=== PATIENT | female | born 1955 | race Caucasian/White ===

== ENCOUNTER 2023-11-29 15:38 | Observation (INO) | payer MEDICARE ==
[2023-11-29 16:21] VITALS: RESP 16
--- NOTE | 2023-11-29 16:25 | ED ---
General Adult HPI - General Chief complaint: Arrhythmia/Palpitations Stated complaint: Defibulator Time Seen by Provider: 11/29/23 15:45 Source: patient, EMS, RN notes reviewed Mode of arrival: EMS Limitations: no limitations - History of Present Illness Initial comments: Patient is a 68-year-old female presenting to the emergency department with concern for defibrillator firing. Patient was exercising for approximately 45 minutes to an hour, somewhat heavy exertion. Patient suddenly felt her defibrillator fire 1 time. Patient felt fine prior to this and has felt fine since this. No episode of this previously although defibrillator has been p resent for 20 years. Patient does have history of metastatic breast cancer and is on chemotherapy. - Related Data Home Medications Medication Instructions Recorded Confirmed Atorvastatin [Lipitor] 20 mg PO HS 11/29/23 11/29/23 Doxycycline [Vibramycin] 100 mg PO DAILY 11/29/23 11/29/23 Ondansetron Odt [Zofran Odt] 8 mg PO Q8HR PRN 11/29/23 11/29/23 dexAMETHasone [Decadron] 4 mg PO DIRECTED 11/29/23 11/29/23 metFORMIN HCL 500 mg PO BID 11/29/23 11/29/23 oxyCODONE HCL [OxyCONTIN] 30 mg PO Q8H 11/29/23 11/29/23 oxyCODONE HCL [oxyCODONE HCL (IR)] 20 mg PO Q4HR PRN 11/29/23 11/29/23 Allergies Allergy/AdvReac Type Severity Reaction Status Date / Time No Known Allergies Allergy Verified 11/29/23 17:06 Review of Systems ROS Statement: Those systems with pertinent positive or pertinent negative responses have been documented in the HPI. ROS Other: All systems not noted in ROS Statement are negative. Constitutional: Denies: fever Eyes: Denies: eye pain ENT: Denies: ear pain Respiratory: Denies: cough, dyspnea Cardiovascular: Reports: as per HPI Endocrine: Denies: fatigue Gastrointestinal: Denies: abdominal pain Past Medical History Past Medical History: Cancer, Hyperlipidemia Additional Past Medical History / Comment(s): Breast CA, Metatastic breast CA, borderline diabetic History of Any Multi-Drug Resistant Organisms: None Reported Past Surgical History: AICD, Breast Surgery Past Psychological History: No Psychological Hx Reported Smoking Status: Never smoker Past Alcohol Use History: None Reported Past Drug Use History: None Reported General Exam Limitations: no limitations General appearance: alert, in no apparent distress Head exam: Present: normocephalic Eye exam: Present: normal appearance Neck exam: Present: normal inspection Respiratory exam: Present: normal lung sounds bilaterally Cardiovascular Exam: Present: regular rate, normal rhythm, normal heart sounds Expanded Peripheral pulses: 2+: Radial (R), Radial (L), Dorsalis Pedis (R), Dorsalis Pedis (L) GI/Abdominal exam: Present: soft. Absent: tenderness Extremities exam: Present: normal inspection. Absent: pedal edema, calf tenderness Neurological exam: Present: alert Psychiatric exam: Present: normal affect, normal mood Skin exam: Present: normal color Course Vital Signs 11/29/23 11/29/23 11/29/23 16:03 16:10 17:10 Temperature 98.4 F Pulse Rate 88 87 76 Respiratory 16 16 16 Rate Blood Pressure 137/88 137/88 O2 Sat by Pulse 98 98 98 Oximetry 11/29/23 11/29/23 18:10 19:00 Temperature Pulse Rate 82 81 Respiratory 16 16 Rate Blood Pressure 136/78 O2 Sat by Pulse 98 96 Oximetry EKG Findings - EKG Results: EKG: interpreted by ERMD, sinus rhythm, normal axis, normal QRS, normal ST/T Medical Decision Making - Medical Decision Making Was pt. sent in by a medical professional or institution (ARMANDO Taylor, COMPUTER SPECIALIST, urgent care, hospital, or correction...) When possible be specific @ -No Did you speak to anyone other than the patient for history (EMS, parent, family, police, friend...)? What history was obtained from this source @ -No Did you review nursing and triage notes (agree or disagree)? Why? @ -I reviewed and agree with nursing and triage notes Were old charts reviewed (outside hosp., previous admission, EMS record, old EKG, old radiological studies, urgent care reports/EKG's, correction records)? Report findings @ -No old charts were reviewed Differential Diagnosis (chest pain, altered mental status, abdominal pain women, abdominal pain men, vaginal bleeding, weakness, fever, dyspnea, syncope, headache, dizziness, GI bleed, back pain, seizure, CVA, palpatations, mental h ealth, musculoskeletal)? @ -MDM differential palpitation EKG interpreted by me (3pts min.). @ -As above X-rays interpreted by me (1pt min.). @ -Chest x-ray shows possible minimal effusions. Defibrillator. Port CT interpreted by me (1pt min.). @ -None done U/S interpreted by me (1pt. min.). @ -None done What testing was considered but not performed or refused? (CT, X-rays, U/S, labs)? Why? @ -Still pending interrogation of defibrillator What meds were considered but not given or refused? Why? @ -None Did you discuss the management of the patient with other professionals (professionals i.e. Dr., PA, COMPUTER SPECIALIST, lab, RT, psych nurse, social work nurse, freight broker, teacher, assistant chief nursing officer, case briefer)? Give summary @ -Case was discussed with Dr. Obando who will admit covering hospital call Was smoking cessation discussed for >3mins.? @ -No Was critical care preformed (if so, how long)? @ -No Were there social determinants of health that impacted care today? How? (Homelessness, low income, unemployed, alcoholism, drug addiction, transportation, low edu. Level, literacy, decrease access to med. care, correction, rehab)? @ -No Was there de-escalation of care discussed even if they declined (Discuss DNR or withdrawal of care, Hospice)? DNR status @ -No What co-morbidities impacted this encounter? (DM, HTN, Smoking, COPD, CAD, Cancer, CVA, ARF, Chemo, Hep., AIDS, mental health diagnosis, sleep apnea, morbid obesity)? @ -History of metastatic breast cancer. History of defibrillator Was patient admitted / discharged? Hospital course, mention meds given and route, prescriptions, significant lab abnormalities, going to OR and other pertinent info. @ -Patient presents with defibrillator shock. Troponin level is somewhat elevated, likely from shock. Patient will be admitted with cardiac consult and repeat troponin testing. Admission orders written. Consult placed. No heparin at this time secondary to thoughts that troponin is likely related to the shock. Undiagnosed new problem with uncertain prognosis? @ -No Drug Therapy requiring intensive monitoring for toxicity (Heparin, Nitro, Insulin, Cardizem)? @ -No Were any procedures done? @ -No Diagnosis/symptom? @ -Defibrillator firing Acute, or Chronic, or Acute on Chronic? @ -Acute Uncomplicated (without systemic symptoms) or Complicated (systemic symptoms)? @ -Default Side effects of treatment? @ -No Exacerbation, Progression, or Severe Exacerbation? @ -No Poses a threat to life or bodily function? How? (Chest pain, USA, AR, pneumonia, PE, COPD, DKA, ARF, appy, cholecystitis, CVA, Diverticulitis, Homicidal, Emily cidal, threat to staff... and all critical care pts) @ -Threat to cardiac function - Lab Data Result diagrams: 11/29/23 17:00 11/29/23 18:50 Lab Results 11/29/23 11/29/23 11/29/23 Range/Units 17:00 17:00 18:50 WBC 3.6 L (3.8-10.6) k/uL RBC 4.30 (3.80-5.40) m/uL Hgb 11.2 L (11.4-16.0) gm/dL Hct 35.6 (34.0-46.0) % MCV 82.7 (80.0-100.0) fL MCH 26.0 (25.0-35.0) pg MCHC 31.5 (31.0-37.0) g/dL RDW 15.6 H (11.5-15.5) % Plt Count 194 (150-450) k/uL MPV 8.6 Neutrophils % 76 % Lymphocytes % 17 % Monocytes % 3 % Eosinophils % 3 % Basophils % 0 % Neutrophils # 2.8 (1.3-7.7) k/uL Lymphocytes # 0.6 L (1.0-4.8) k/uL Monocytes # 0.1 (0-1.0) k/uL Eosinophils # 0.1 (0-0.7) k/uL Basophils # 0.0 (0-0.2) k/uL Hypochromasia Slight PT 10.8 (10.0-12.5) sec INR 1.0 (<1.2) APTT 22.5 (22.0-30.0) sec Sodium (137-145) mmol/L Potassium (3.5-5.1) mmol/L Chloride (98-107) mmol/L Carbon Dioxide (22-30) mmol/L Anion Gap mmol/L BUN (7-17) mg/dL Creatinine (0.52-1.04) mg/dL Est GFR (CKD-EPI)AfAm (>60 ml/min/1.73 sqM) Est GFR (CKD-EPI)NonAf (>60 ml/min/1.73 sqM) Glucose (74-99) mg/dL Calcium (8.4-10.2) mg/dL Magnesium (1.6-2.3) mg/dL Total Bilirubin (0.2-1.3) mg/dL AST (14-36) U/L ALT (4-34) U/L Alkaline Phosphatase (38-126) U/L Troponin I 0.102 H* (0.000-0.034) ng/mL Total Protein (6.3-8.2) g/dL Albumin (3.5-5.0) g/dL TSH (0.465-4.680) mIU/L Free T4 (0.78-2.19) ng/dL 11/29/23 Range/Units 18:50 WBC (3.8-10.6) k/uL RBC (3.80-5.40) m/uL Hgb (11.4-16.0) gm/dL Hct (34.0-46.0) % MCV (80.0-100.0) fL MCH (25.0-35.0) pg MCHC (31.0-37.0) g/dL RDW (11.5-15.5) % Plt Count (150-450) k/uL MPV Neutrophils % % Lymphocytes % % Monocytes % % Eosinophils % % Basophils % % Neutrophils # (1.3-7.7) k/uL Lymphocytes # (1.0-4.8) k/uL Monocytes # (0-1.0) k/uL Eosinophils # (0-0.7) k/uL Basophils # (0-0.2) k/uL Hypochromasia PT (10.0-12.5) sec INR (<1.2) APTT (22.0-30.0) sec Sodium 133 L (137-145) mmol/L Potassium 4.5 (3.5-5.1) mmol/L Chloride 106 (98-107) mmol/L Carbon Dioxide 25 (22-30) mmol/L Anion Gap 2 mmol/L BUN 16 (7-17) mg/dL Creatinine 0.69 (0.52-1.04) mg/dL Est GFR (CKD-EPI)AfAm >90 (>60 ml/min/1.73 sqM) Est GFR (CKD-EPI)NonAf 90 (>60 ml/min/1.73 sqM) Glucose 89 (74-99) mg/dL Calcium 9.0 (8.4-10.2) mg/dL Magnesium 1.9 (1.6-2.3) mg/dL Total Bilirubin 0.3 (0.2-1.3) mg/dL AST 57 H (14-36) U/L ALT 24 (4-34) U/L Alkaline Phosphatase 59 (38-126) U/L Troponin I (0.000-0.034) ng/mL Total Protein 6.3 (6.3-8.2) g/dL Albumin 3.9 (3.5-5.0) g/dL TSH 0.934 (0.465-4.680) mIU/L Free T4 1.45 (0.78-2.19) ng/dL Disposition Clinical Impression: Defibrillator discharge Disposition: ADMITTED IP TO THIS HOSP Is patient prescribed a controlled substance at d/c from ED?: No Referrals: Rocael Mcqueen MD [Primary Care Provider] - 1-2 days Time of Disposition: 20:20
--- NOTE | 2023-11-29 17:33 | XR ---
EXAMINATION TYPE: XR chest 2V DATE OF EXAM: 11/29/2023 COMPARISON: None INDICATION: Dysrhythmia TECHNIQUE: Frontal and lateral views of the chest are obtained. FINDINGS: The heart size is normal. The pulmonary vasculature is normal. Small bilateral pleural effusions are present. Port is present on the left with tip in the superior v kayy cava region. Electronic device overlies the right chest IMPRESSION: 1. Small bilateral pleural effusions [facility], Workstation: [facility], 11/29/2023 5:31 PM
[2023-11-29 17:41] LABS: Basophils % (A) 0 %; Eosinophils # (A) 0.1 k/uL (0-0.7); Eosinophils % (A) 3 %; HCT 35.6 % (34.0-46.0); HGB 11.2 gm/dL (11.4-16.0); Hypochromasia Slight; Lymphocytes # (A) 0.6 k/uL (1.0-4.8); Lymphocytes % (A) 17 %; MCHC 31.5 g/dL (31.0-37.0); MCV 82.7 fL (80.0-100.0); Mean Platelet Volume 8.6; Monocytes # (A) 0.1 k/uL (0-1.0); Monocytes % (A) 3 %; Neutrophils # (A) 2.8 k/uL (1.3-7.7); Neutrophils % (A) 76 %; Platelet Count 194 k/uL (150-450); RDW 15.6 % (11.5-15.5); WBC 3.6 k/uL (3.8-10.6)
[2023-11-29 18:05] LABS: Partial Thromboplastin Time 22.5 sec (22.0-30.0); Prothrombin Time 10.8 sec (10.0-12.5)
[2023-11-29 19:10] LABS: ALT 24 U/L (4-34); AST 57 U/L (14-36); African American GFR (CKD) >90 (>60 ml/min/1.73 sqM); Albumin 3.9 g/dL (3.5-5.0); Alkaline Phosphatase 59 U/L (38-126); Anion Gap 2 mmol/L; Blood Urea Nitrogen 16 mg/dL (7-17); Carbon Dioxide 25 mmol/L (22-30); Chloride 106 mmol/L (98-107); Glucose 89 mg/dL (74-99); Magnesium 1.9 mg/dL (1.6-2.3); Non-African American GFR(CKD) 90 (>60 ml/min/1.73 sqM); Potassium 4.5 mmol/L (3.5-5.1); Sodium 133 mmol/L (137-145); Total Bilirubin 0.3 mg/dL (0.2-1.3); Total Protein 6.3 g/dL (6.3-8.2)
[2023-11-29 19:27] LABS: T4, Free (Free Thyroxine) 1.45 ng/dL (0.78-2.19)
[2023-11-29] MEDS ORDERED: ONDANSETRON ODT 8 MG TAB.RAPDIS PO PRN (20:15)
[2023-11-29] MEDS ORDERED: NALOXONE 0.4 MG/ML 1 ML VIAL IV PRN (20:21)
[2023-11-29] MEDS: metFORMIN 500 MG TAB PO SCH (20:48)
[2023-11-29] MEDS: dexAMETHasone 4 MG TAB PO SCH (20:51)
[2023-11-29] MEDS: oxyCODONE ER 15 MG TAB.ER.12H PO SCH (20:52)
[2023-11-29] MEDS: ATORVASTATIN 20 MG TAB PO SCH (21:03)
[2023-11-29] MEDS: ASPIRIN 325 MG TAB PO SCH (21:03)
[2023-11-30 12:22] VITALS: BP 149/77; PULSE 73; TEMP 97.9
--- NOTE | 2023-11-30 12:47 | P.HPIM ---
History of Present Illness H&P Date: 11/30/23 History of present illness; patient 68-year-old lady with past medical history significant for breast cancer, ACDF in the ER because of AICD firing. 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 Patient stated that she moved to [place] few years ago but kept her previous doctors. Patient states that she was exercising yesterday at home and suddenly she felt her AICD firing. AICD fired 1 time. Patient felt normal afterwards. There was no complaint of any chest pain or shortness of breath. There was no nausea, no complaint of vomiting abdominal pain. Patient denies any passing out. There was no complaint of lethargy or weakness. There was no complaint of l ightheadedness dizziness. Because of AICD firing, patient presented to the ER Initial lab work done in the ER showed WBC 3.6, hemoglobin 9.2, platelet count 194, sodium 123, potassium 4.5, BUN 16, creatinine 0.69, glucose 89, magnesium 1.9, AST 57, troponin 0.102 EKG done in the ER showed heart rate of 79, no ST segment elevation or depression seen, no T-wave inversions seen. Chest x-ray done in the ER showed small bilateral pleural effusion Patient admitted to internal medicine service REVIEW OF SYSTEMS: CONSTITUTIONAL: No fever, no malaise, no fatigue. HEENT: No recent visual problems or hearing problems. Denied any sore throat. CARDIOVASCULAR: As mentioned above PULMONARY: As mentioned above GASTROINTESTINAL: No diarrhea, no nausea, no vomiting, no abdominal pain. NEUROLOGICAL: No headaches, no weakness, no numbness. HEMATOLOGICAL: Denies any bleeding or petechiae. GENITOURINARY: Denies any burning micturition, frequency, or urgency. MUSCULOSKELETAL/RHEUMATOLOGICAL: Denies any joint pain, swelling, or any muscle pain. ENDOCRINE: Denies any polyuria or polydipsia. The rest of the 14-point review of systems is negative. PHYSICAL EXAMINATION: GENERAL: The patient is alert and oriented x3, not in any acute distress. Well developed, well nourished. HEENT: Pupils are round and equally reacting to light. EOMI. No scleral icterus. No conjunctival pallor. Normocephalic, atraumatic. No pharyngeal erythema. No thyromegaly. CARDIOVASCULAR: S1 and S2 present. No murmurs, rubs, or gallops. PULMONARY: Chest is clear to auscultation, no wheezing or crackles. ABDOMEN: Soft, nontender, nondistended, normoactive bowel sounds. No palpable organomegaly. MUSCULOSKELETAL: No joint swelling or deformity. EXTREMITIES: No cyanosis, clubbing, or pedal edema. NEUROLOGICAL: Gross neurological examination did not reveal any focal deficits. SKIN: No rashes. Assessment and plan AICD firing Elevated troponin secondary to AICD firing History of metastatic breast cancer Hyperlipidemia Diabetes mellitus Monitor vital signs Monitor CBC Monitor CMP Continue telemetry monitoring Trend troponin Check electrolytes Resume home med Consult cardiology Labs and medication were reviewed.. Continue same treatment. Continue with symptomatic treatment. Resume home medication. Monitor labs and vitals. DVT and GI prophylaxis. Further recommendations as per clinical course of the patient Dictation was produced using [employer] dictation software. please excuse any grammatical, word or spelling errors. Past Medical History Past Medical History: Cancer, Hyperlipidemia Additional Past Medical History / Comment(s): metatastic breast CA History of Any Multi-Drug Resistant Organisms: None Reported Past Surgical History: AICD, Breast Surgery Past Anesthesia/Blood Transfusion Reactions: No Reported Reaction Type of Cardiac Device: AICD Device Placement Date:: UNKNOWN Past Psychological History: No Psychological Hx Reported Smoking Status: Never smoker Past Alcohol Use History: None Reported Past Drug Use History: None Reported Medications and Allergies Home Medications Medication Instructions Recorded Confirmed Type Atorvastatin [Lipitor] 20 mg PO HS 11/29/23 11/29/23 History Doxycycline [Vibramycin] 100 mg PO DAILY 11/29/23 11/29/23 History Ondansetron Odt [Zofran Odt] 8 mg PO Q8HR PRN 11/29/23 11/29/23 History dexAMETHasone [Decadron] 4 mg PO DIRECTED 11/29/23 11/29/23 History metFORMIN HCL 500 mg PO BID 11/29/23 11/29/23 History oxyCODONE HCL [OxyCONTIN] 30 mg PO Q8H 11/29/23 11/29/23 History oxyCODONE HCL [oxyCODONE HCL (IR)] 20 mg PO Q4HR PRN 11/29/23 11/29/23 History Allergies Allergy/AdvReac Type Severity Reaction Status Date / Time No Known Allergies Allergy Verified 11/29/23 17:06 Physical Exam Vitals: Vital Signs Temp Pulse Pulse Resp BP BP Pulse Ox 11/30/23 12:16 97.9 F 73 16 149/77 98 11/30/23 08:55 98.1 F 68 16 124/76 99 11/30/23 07:45 96 11/30/23 04:00 97.6 F 72 16 103/66 97 11/30/23 00:00 72 16 118/73 98 11/29/23 21:45 98.8 F 94 16 137/74 100 11/29/23 21:10 81 16 98 11/29/23 21:00 77 16 107/74 98 11/29/23 19:00 81 16 136/78 96 11/29/23 18:10 82 16 98 11/29/23 17:10 76 16 137/88 98 11/29/23 16:10 87 16 98 11/29/23 16:03 98.4 F 88 16 137/88 98 Intake and Output 11/29/23 11/30/23 11/30/23 22:59 06:59 14:59 Intake Total 10 Balance 10 Intake: IV 10 Invasive Line 1 10 Other: Voiding Method Toilet # Voids 1 1 Weight 51.71 kg 52.2 kg Results CBC & Chem 7: 11/29/23 17:00 11/29/23 18:50 Labs: Abnormal Lab Results - Last 24 Hours (Table) 11/29/23 11/29/23 11/29/23 Range/Units 17:00 18:50 18:50 WBC 3.6 L (3.8-10.6) k/uL Hgb 11.2 L (11.4-16.0) gm/dL RDW 15.6 H (11.5-15.5) % Lymphocytes # 0.6 L (1.0-4.8) k/uL Sodium 133 L (137-145) mmol/L AST 57 H (14-36) U/L Troponin I 0.102 H* (0.000-0.034) ng/mL 11/29/23 11/30/23 Range/Units 21:30 00:45 WBC (3.8-10.6) k/uL Hgb (11.4-16.0) gm/dL RDW (11.5-15.5) % Lymphocytes # (1.0-4.8) k/uL Sodium (137-145) mmol/L AST (14-36) U/L Troponin I 0.148 H* 0.134 H* (0.000-0.034) ng/mL Thrombosis Risk Factor Assmnt - Choose All That Apply Any of the Below Risk Factors Present?: No Other Risk Factors: Yes Each Risk Factor Represents 2 Points: Age 61-74 years Other congenital or acquired thrombophilia - If yes, enter type in comment: No Thrombosis Risk Factor Assessment Total Risk Factor Score: 2 Thrombosis Risk Factor Assessment Level: Low Risk
--- NOTE | 2023-11-30 12:49 | P.DS ---
Providers Date of admission: 11/29/23 20:21 Expected date of discharge: 11/30/23 Attending physician: Barry Myers MD Consults: 11/29/23 20:21 Consult Physician Urgent Consulting Provider: Audie Nazario Consult Reason/Comments: Defibrillator firing, troponin 0.1 Do you want consulting provider notified?: Yes Primary care physician: [facility] Course: Discharge diagnoses; AICD firing Elevated troponin secondary to AICD firing History of metastatic breast cancer Hyperlipidemia Diabetes mellitus Hospital course; patient 68-year-old lady with past medical history significant for breast cancer, ACDF in the ER because of AICD firing. 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 Patient stated that she moved to [place] few years ago but kept her previous doctors. Patient states that she was exercising yesterday at home and suddenly she felt her AICD firing. AICD fired 1 time. Patient felt normal afterwards. There was no complaint of any chest pain or shortness of breath. There was no nausea, no complaint of vomiting abdominal pain. Patient denies any passing out. There was no complaint of lethargy or weakness. There was no complaint of lightheadedness dizziness. Because of AICD firing, patient presented to the ER Initial lab work done in the ER showed WBC 3.6, hemoglobin 9.2, platelet count 194, sodium 123, potassium 4.5, BUN 16, creatinine 0.69, glucose 89, magnesium 1.9, AST 57, troponin 0.102 EKG done in the ER showed heart rate of 79, no ST segment elevation or depression seen, no T-wave inversions seen. Chest x-ray done in the ER showed small bilateral pleural effusion Patient admitted to internal medicine service Patient was seen by cardiology, AICD was interrogated, cardiology thinks that AICD was inappropriately fired. Cardiology do not recommend any further ischemic workup. Recommend follow-up outpatient with patient's own automobile inspector. Being discharged in stable condition PHYSICAL EXAMINATION: GENERAL: The patient is alert and oriented x3, not in any acute distress. Well developed, well nourished. HEENT: Pupils are round and equally reacting to light. EOMI. No scleral icterus. No conjunctival pallor. Normocephalic, atraumatic. No pharyngeal erythema. No thyromegaly. CARDIOVASCULAR: S1 and S2 present. No murmurs, rubs, or gallops. PULMONARY: Chest is clear to auscultation, no wheezing or crackles. ABDOMEN: Soft, nontender, nondistended, normoactive bowel sounds. No palpable organomegaly. MUSCULOSKELETAL: No joint swelling or deformity. EXTREMITIES: No cyanosis, clubbing, or pedal edema. NEUROLOGICAL: Gross neurological examination did not reveal any focal deficits. SKIN: No rashes. Dictation was produced using [employer] dictation software. please excuse any grammatical, word or spelling errors. Patient Condition at Discharge: Good Plan - Discharge Summary Discharge Rx Participant: No New Discharge Prescriptions: Continue oxyCODONE HCL [oxyCODONE HCL (IR)] 20 mg PO Q4HR PRN PRN Reason: Breakthrough Pain Atorvastatin [Lipitor] 20 mg PO HS oxyCODONE HCL [OxyCONTIN] 30 mg PO Q8H metFORMIN HCL 500 mg PO BID Doxycycline [Vibramycin] 100 mg PO DAILY Ondansetron Odt [Zofran ODT] 8 mg PO Q8HR PRN PRN Reason: Nausea dexAMETHasone [Decadron] 4 mg PO DIRECTED Discharge Medication List Atorvastatin [Lipitor] 20 mg PO HS 11/29/23 [History] Doxycycline [Vibramycin] 100 mg PO DAILY 11/29/23 [History] Ondansetron Odt [Zofran ODT] 8 mg PO Q8HR PRN 11/29/23 [History] dexAMETHasone [Decadron] 4 mg PO DIRECTED 11/29/23 [History] metFORMIN HCL 500 mg PO BID 11/29/23 [History] oxyCODONE HCL [OxyCONTIN] 30 mg PO Q8H 11/29/23 [History] oxyCODONE HCL [oxyCODONE HCL (IR)] 20 mg PO Q4HR PRN 11/29/23 [History] Follow up Appointment(s)/Referral(s): Rocael Mcqueen MD [Primary Care Provider] - 1-2 days Discharge Disposition: HOME SELF-CARE
--- NOTE | 2023-11-30 13:49 | P.CRDCN ---
History of Present Illness Consult date: 11/30/23 History of present illness: HISTORY OF PRESENTING ILLNESS Patient is a 68-year-old female with past medical history of metastatic breast cancer on chemotherapy at this time. 20 years ago patient had a ventricular tachycardia for which she underwent ablation which failed. Due to this she underwent an ICD placement. Over last 20 years she has not had any ICD discharges. She follows up with her cyber security specialist and [facility] based out of [facility]. Yesterday patient was exercising on her treadmill after a 6-day break of exercising. Usually she wears a heart monitor to monitor her heart because she does have tendency of having fast heartbeat. Yesterday she was not wearing a heart monitor. Patient reports while exercising she felt a jolt in her chest and felt that her ICD has shocked her. Due to this she presented to the ER. On evaluating her at bedside today she denies having any symptoms of chest pain chest pressure. She denies any symptoms of palpitation lightheadedness or dizziness. She denies any episodes of lightheadedness dizziness or passing out. She reports that she has been in good health overall and has not had any card iac symptoms before the event or after the event of ICD shocking. On review of her [employer] ICD interrogation performed in the ER it appears that patient heart rate was 180s to 190s. This is in her VT zone of ICD. Patient received 3 ATPs and then eventually got shocked. Intracardiac el ectrocardiogram review shows intrinsic rhythm to be sinus tachycardia. He does not appear to be ventricular tachycardia or ventricular fibrillation on initial review. Her ECG at this time shows normal sinus rhythm with no significant ST-T wave changes that are diagnostic for ischemia Labs hemoglobin 11.2, WBC 3.6, sodium 133 potassium 4.5, BUN 16, creatinine 0.69, TSH 0.9, free T41.4, troponins were elevated with a flat pattern at 0.1. REVIEW OF SYSTEMS 14 point review of system is negative except what is mentioned above in HPI. PHYSICAL EXAMINATION Vital signs reviewed. Head: Normocephalic. Eyes: Sclerae nonicteric. Neck: Brisk carotid upstroke, no jugular venous distention. Lungs: Clear to auscultation. Heart: Regular rate and rhythm, S1-S2, no S3, no murmur or rub. Abdomen: Soft nontender, positive bowel sounds. Extremities: No edema, intact distal pulses. Neuro: Alert, oritented, no focal deficits. Detailed neuro exam was not performed. ASSESSMENT ICD discharge, likely inappropriate because of sinus tachycardia picked up as VT ICD Prior history of VT with secondary prevention ICD Metastatic HER2 positive breast cancer PLAN Patient is very eager to go home. She reports that she has recently got tested by her primary cyber security specialist with a echocardiogram and a stress test. She shows me the stress test and echocardiogram reports which are within normal limits as per the patient and her cyber security specialist. On my review of her intra cardiac electrocardiograms, it appears that the intrinsic rhythm is sinus rhythm and does not appears to be VT or V-fib. It appears that patient went into sinus tachycardia while exercising on treadmill and it was picked up VT by her ICD because the heart rate was in the VT zone I have instructed the patient to do an early follow-up with her primary cyber security specialist in get her device interrogated in the device clinic as soon as possible. Because patient is very eager to go home, I will let the patient be discharged from cardiovascular standpoint. Babak Alexandre MD, FAC, RPVI Thank you for allowing [facility] to participate in this patient's care. Feel free to reach out in case of any followup questions. Past Medical History Past Medical History: Cancer, Hyperlipidemia Additional Past Medical History / Comment(s): metatastic breast CA History of Any Multi-Drug Resistant Organisms: None Reported Past Surgical History: AICD, Breast Surgery Past Anesthesia/Blood Transfusion Reactions: No Reported Reaction Type of Cardiac Device: AICD Device Placement Date:: UNKNOWN Past Psychological History: No Psychological Hx Reported Smoking Status: Never smoker Past Alcohol Use History: None Reported Past Drug Use History: None Reported Medications and Allergies Home Medications Medication Instructions Recorded Confirmed Type Atorvastatin [Lipitor] 20 mg PO HS 11/29/23 11/29/23 History Doxycycline [Vibramycin] 100 mg PO DAILY 11/29/23 11/29/23 History Ondansetron Odt [Zofran ODT] 8 mg PO Q8HR PRN 11/29/23 11/29/23 History dexAMETHasone [Decadron] 4 mg PO DIRECTED 11/29/23 11/29/23 History metFORMIN HCL 500 mg PO BID 11/29/23 11/29/23 History oxyCODONE HCL [OxyCONTIN] 30 mg PO Q8H 11/29/23 11/29/23 History oxyCODONE HCL [oxyCODONE HCL (IR)] 20 mg PO Q4HR PRN 11/29/23 11/29/23 History Allergies Allergy/AdvReac Type Severity Reaction Status Date / Time No Known Allergies Allergy Verified 11/29/23 17:06 Physical Exam Vitals: Vital Signs Temp Pulse Pulse Resp BP BP Pulse Ox 11/30/23 12:16 97.9 F 73 16 149/77 98 11/30/23 08:55 98.1 F 68 16 124/76 99 11/30/23 07:45 96 11/30/23 04:00 97.6 F 72 16 103/66 97 11/30/23 00:00 72 16 118/73 98 11/29/23 21:45 98.8 F 94 16 137/74 100 11/29/23 21:10 81 16 98 11/29/23 21:00 77 16 107/74 98 11/29/23 19:00 81 16 136/78 96 11/29/23 18:10 82 16 98 11/29/23 17:10 76 16 137/88 98 11/29/23 16:10 87 16 98 11/29/23 16:03 98.4 F 88 16 137/88 98 Intake and Output 11/29/23 11/30/23 11/30/23 22:59 06:59 14:59 Intake Total 10 Balance 10 Intake: IV 10 Invasive Line 1 10 Other: Voiding Method Toilet # Voids 1 1 Weight 51.71 kg 52.2 kg Results 11/29/23 17:00 11/29/23 18:50 Cardiac Enzymes 11/29/23 11/29/23 11/29/23 Range/Units 18:50 18:50 21:30 AST 57 H (14-36) U/L Troponin I 0.102 H* 0.148 H* (0.000-0.034) ng/mL 11/30/23 Range/Units 00:45 AST (14-36) U/L Troponin I 0.134 H* (0.000-0.034) ng/mL Coagulation 11/29/23 Range/Units 17:00 PT 10.8 (10.0-12.5) sec APTT 22.5 (22.0-30.0) sec CBC 11/29/23 Range/Units 17:00 WBC 3.6 L (3.8-10.6) k/uL RBC 4.30 (3.80-5.40) m/uL Hgb 11.2 L (11.4-16.0) gm/dL Hct 35.6 (34.0-46.0) % Plt Count 194 (150-450) k/uL Comprehensive Metabolic Panel 11/29/23 Range/Units 18:50 Sodium 133 L (137-145) mmol/L Potassium 4.5 (3.5-5.1) mmol/L Chloride 106 (98-107) mmol/L Carbon Dioxide 25 (22-30) mmol/L BUN 16 (7-17) mg/dL Creatinine 0.69 (0.52-1.04) mg/dL Glucose 89 (74-99) mg/dL Calcium 9.0 (8.4-10.2) mg/dL AST 57 H (14-36) U/L ALT 24 (4-34) U/L Alkaline Phosphatase 59 (38-126) U/L Total Protein 6.3 (6.3-8.2) g/dL Albumin 3.9 (3.5-5.0) g/dL Current Medications Generic Name Dose Route Start Last Admin Trade Name Freq PRN Reason Stop Dose Admin Aspirin 325 mg 11/29/23 20:30 11/30/23 08:54 Aspirin 325 Mg Tab PO 325 mg DAILY DAKOTAH Administration Atorvastatin Calcium 20 mg 11/29/23 21:00 11/29/23 21:03 Atorvastatin 20 Mg Tab PO 20 mg HS DAKOTAH Administration Dexamethasone 4 mg 11/29/23 20:15 11/29/23 20:51 Dexamethasone 4 Mg Tab PO Not Given DIRECTED DAKOTAH Metformin HCl 500 mg 11/29/23 21:00 11/30/23 08:54 Metformin 500 Mg Tab PO 500 mg BID DAKOTAH Administration Naloxone HCl 0.2 mg 11/29/23 20:21 Naloxone 0.4 Mg/Ml 1 Ml Vial IV Q2M PRN Opioid Reversal Ondansetron HCl 8 mg 11/29/23 20:15 Ondansetron Odt 8 Mg Tab.Rapdis PO Q8HR PRN Nausea Oxycodone HCl 30 mg 11/29/23 20:15 11/30/23 12:22 Oxycodone Er 15 Mg Tab.Er.12h PO 30 mg Q8H DAKOTAH Administration Oxycodone HCl 20 mg 11/29/23 20:15 Oxycodone Hcl 5 Mg Tab PO Q4HR PRN Breakthrough Pain Intake and Output 11/29/23 11/30/23 11/30/23 22:59 06:59 14:59 Intake Total 10 Balance 10 Intake: IV 10 Invasive Line 1 10 Other: Voiding Method Toilet # Voids 1 1 Weight 51.71 kg 52.2 kg 11/29/23 17:00 11/29/23 18:50
== END 2023-11-30 13:53 | disposition home or self-care (01) ==
LOC: EC 15:38 → 3SCARD 20:21
PROVIDERS: ADMIT Internal Medicine; ATTEND Internal Medicine
DX: R00.2 Palpitations (principal); R79.89 Other specified abnormal findings of blood chemistry; Z85.3 Personal history of malignant neoplasm of breast; E78.5 Hyperlipidemia, unspecified; E11.9 Type 2 diabetes mellitus without complications; Z95.810 Presence of automatic (implantable) cardiac defibrillator
CPT/HCPCS: 99285; 36415; 94760; 93005; 84439; 84481; 80053; 83735; 84443; 84484 ×2; 85025; 85610; 85730; 71046; G0378 ×2